=== PATIENT | female | born 1955 | race Caucasian/White ===

== ENCOUNTER 2016-04-08 15:58 | Inpatient (IN) | payer OTHER ==
[~2016-04-08] VITALS: Ht 160 cm; Wt 108.1 kg
[~2016-04-08 15:58] MED LIST: AMBI10TA PO; BENEPOW8 PO; BIOT1SUB SL; CALC600T12 PO; CYMB60CA PO; DICL1GEL TOPICAL; GLUC500C5 PO
[2016-04-12] MEDS ORDERED: ESTR1TAB PO (11:36)
[2016-04-12] MEDS ORDERED: VITA100018 PO (11:36)
[2016-04-12] MEDS ORDERED: HYDR-3516 PO (11:36)
[2016-04-12] MEDS ORDERED: GNP3TAB PO (11:36)
[2016-04-12] MEDS ORDERED: LEVO25TA4 PO (11:36)
[2016-04-12] MEDS ORDERED: STOO100T PO (11:36)
[2016-04-12] MEDS ORDERED: PANT40TA3 PO (11:36)
[2016-04-22] MEDS ORDERED: BUPIVACAINE HCL PF 0.5% 30 ML VIAL NB ONE ×2 (08:39→12:17)
[2016-04-22] MEDS ORDERED: BUPIVACAINE HCL PF 0.25% 30 ML VIAL NB ONE ×2 (08:39→12:17)
[2016-04-22] MEDS ORDERED: PROPOFOL 200 MG/20 ML AMP IV ONE (09:28)
[2016-04-22] MEDS ORDERED: LACTATED RINGER'S 1000 ML INJ 1,000 ML IV ONE (09:29)
[2016-04-22] MEDS ORDERED: NORMOSOL R INJ 1,000 ML IV ONE (09:29)
[2016-04-22] MEDS ORDERED: METOPROLOL TARTRATE 25 MG TAB PO PRN (10:30)
[2016-04-22] MEDS ORDERED: INSULIN HUMAN REGULAR 1,000 UNITS/10 ML VIAL SQ PRN (10:30)
[2016-04-22] MEDS ORDERED: CHLORHEXIDINE GLUCONATE 4% SOLN 120 ML BTL TOP SCH (10:30)
[2016-04-22] MEDS ORDERED: ROPIVACAINE PERI-ARTICULAR INJECTION. PERIART SCH ×5 (10:30)
[2016-04-22] MEDS ORDERED: VANCOMYCIN 1000 MG/NS 250 ML (for <70 kg) IV SCH ×2 (10:30)
[2016-04-22] MEDS ORDERED: SODIUM CHLORID 0.9% 500 ML IV SCH (10:30)
[2016-04-22] MEDS ORDERED: LACTATED RINGER'S 1000 ML IV SCH (10:30)
[2016-04-22] MEDS ORDERED: GENTAMICIN SULFATE 80 MG/2 ML VIAL ONE (10:35)
[2016-04-22] MEDS ORDERED: WARF-21 PO (10:39)
[2016-04-22] MEDS ORDERED: DIAZ5 PO ×2 (10:39)
[2016-04-22 10:48] VITALS: BP 130/78; PULSE 70; RESP 20; TEMP 99; O2SAT 97
[2016-04-22] MEDS ORDERED: FAMOTIDINE 20 MG/2 ML VIAL ONE (11:11)
[2016-04-22] MEDS ORDERED: MIDAZOLAM HCL 5 MG/5 ML VIAL ONE (11:11)
[2016-04-22] MEDS ORDERED: diphenhydrAMINE HCL 50 MG/ML VIAL ONE (11:29)
[2016-04-22] MEDS ORDERED: NEOSTIGMINE 3 MG/3 ML SYR IV ONE (12:00)
[2016-04-22] MEDS ORDERED: DO NOT ADM ANY ANTICOAGULANT DRUGS XX PRN (14:52)
[2016-04-22] MEDS ORDERED: BEDSIDE COMMODE1 MI1 (14:55)
[2016-04-22] MEDS ORDERED: CPMMACHINE (14:55)
[2016-04-22] MEDS ORDERED: WALKER WHEELS/F1 MIS (14:55)
[2016-04-22] MEDS: LACTATED RINGER'S 1000 ML INJ 1,000 ML IV SCH (14:57)
[2016-04-22] MEDS: SODIUM CHLORIDE 0.9% FLUSH 5 ML FLUSH IVF SCH ×2 (15:00→21:32)
[2016-04-22] MEDS ORDERED: ESTRADIOL 1 MG TAB PO PRN (15:00)
[2016-04-22] MEDS ORDERED: ALUMINUM/MAGNESIUM/SIMETH 30 ML CUP PO PRN (15:00)
[2016-04-22] MEDS ORDERED: ZOLPIDEM TARTRATE 10 MG TAB PO PRN (15:00)
[2016-04-22] MEDS ORDERED: MORPHINE SULFATE 8 MG/ML INJ IM PRN (15:00)
[2016-04-22] MEDS ORDERED: ACETAMINOPHEN/HYDROcodone 325 MG/7.5 MG TAB PO PRN ×2 (15:00)
[2016-04-22] MEDS ORDERED: Post-op Orders (for Pharmacy) MISC XX ONE (15:00)
[2016-04-22] MEDS ORDERED: SODIUM CHLORIDE 0.9% FLUSH 5 ML FLUSH IVF PRN (15:00)
[2016-04-22] MEDS ORDERED: *MEPERIDINE 25 MG INJ VIAL PERIprocedural Use ONLY ONE (15:02)
--- NOTE | 2016-04-22 15:03 | HHI.FF ---
Face to Face Verification Diagnosis: (1) Osteoarthritis of right knee Physical Therapy Gait training, Transfer training, bed to chair Knee: Total knee, Protocol: Right Right LE Weight Bearing: WB as tolerated Left LE Weight Bearing: WB as tolerated Nursing RN Days per Week: 3 x Week(s): 2 Nursing: Dressing changes (clean incision with alcohol and apply dry sterile dressing ) Additional Instructions Pt/INR q Tuesday and , call/text results to Molly URENA [phone] Goal INR 1.5-1.8 I have seen patient Virginia Solano on 04/22/16. My clinical findings support the need for the requested home health care services because: Deconditioned w/ increased weakness High risk of falls I certify that my clinical findings support that this patient is homebound because: Post-op weakness Klaus Snyder MD Apr 22, 2016 15:02
--- NOTE | 2016-04-22 15:08 | HHI.PR ---
Immediate Post Op Note Procedure Date: Apr 22, 2016 Pre Op Diagnosis: R Knee OA Post Op Diagnosis: Same Surgeon: Klaus Snyder MD Tankage Grinder(s): Molly Emmanuel PA-C Procedure: R TKR Complications: None Specimen(s) removed: None Estimated blood loss: 50cc Anesthesia: General, Regional Block Drains: Hemovac Patient to: PACU Patient Condition: Good Implant/Devices: SEE IMPLANT LOG (if applicable) Date/Time of Procedure: SEE SURGICAL CARE RECORD Klaus Snyder MD Apr 22, 2016 15:08
[2016-04-22] MEDS ORDERED: MORPHINE SULFATE 4 MG/ML INJ ONE (15:11)
[2016-04-22] MEDS ORDERED: fentaNYL CITRATE 250 MCG/5 ML AMP ONE (15:11)
[2016-04-22] MEDS ORDERED: ACETAMINOPHEN 1000 MG/100 ML VIAL IV ONE (15:14)
[2016-04-22] MEDS ORDERED: *morphine SULFATE 8 MG/ML PERIprocedure ONLY ONE ×2 (15:22→15:41)
--- NOTE | 2016-04-22 15:54 | RADRPT ---
EXAM DATE/TIME: 04/22/2016 15:21 [facility] COMPARISON: No previous studies available for comparison. INDICATIONS : Post op right knee surgery. MEDICAL HISTORY : None. SURGICAL HISTORY : None. ENCOUNTER: Initial ACUITY: 1 day PAIN SCORE: 10/10 LOCATION: Right knee FINDINGS: Views of the right knee demonstrates postsurgical changes following joint replacements. Surgical drai n is noted within the joint space. Prosthetic components are well seated in satisfactory aligned. CONCLUSION: Satisfactory postoperative appearance of the right knee status post replacement. Titus Knowles MD on April 22, 2016 at 15:52 Board Certified Radiologist. This report was verified electronically.
--- NOTE | 2016-04-22 16:24 | PD.CONS ---
HPI Service [facility] Hospitalists Consult Requested By Dr. Klaus Snyder Reason for Consult Medical Management Primary Care Physician Norma De Jesus Jr, MD Diagnoses: History of Present Illness Mrs. Solano is a pleasant 60 y/o WF depression/anxiety, hypothyroidism, GERD, fibromyalgia, osteoarthritis and hx of breast cancer. Pt was admitted to [facility] on 04/22/16 for elective right total knee arthroplasty. [facility] hospitalist team was consulted to help with management of the pts chronic medical issues. She is seen post-operatively in the PACU. Pt complains of pain in the right knee otherwise no specific complaints. Cheek catheter is in place. Vital signs are stable. She reports that he has had issues recently with rectal bleeding related to an anal fissure. Pt has been following with Dr. iNce regarding this. She has been using Anusol. Pt was given a dose of Coumadin which she took for the first time yesterday. She will be on Coumadin for DVT prophylaxis. Her preop labs noted Hgb 13.3 on 04/12/16. Review of Systems Constitutional: DENIES: Fever, Chills Eyes: DENIES: Vision loss Ears, nose, mouth, throat: DENIES: Hearing loss Respiratory: DENIES: Cough, Shortness of breath Cardiovascular: DENIES: Chest pain, Palpitations Gastrointestinal: DENIES: Abdominal pain, Nausea, Vomiting Musculoskeletal: COMPLAINS OF: Joint pain Integumentary: DENIES: Rash Neurologic: DENIES: Headache Psychiatric: DENIES: Confusion Past Family Social History Past Medical History Depression Anxiety GERD Osteoarthritis Anal fissure Chronic pain Fibromyalgia Diverticulosis/Hx of diverticulitis Hypothyroidism Hx of breast cancer s/p radiation Past Surgical History Cataract surgery D&C Hemorrhoidectomy ENEDELIA Laparoscopy Reported Medications -Warfarin 7.5 Mg PO DAILY -Valium 5 Mg PO BID PRN -Vitamin D3 1,000 Units PO DAILY -Melatonin 12 Mg PO HS -Pantoprazole 40 Mg PO DAILY -Estradiol 0.5 Mg PO HS PRN -Stool Softener 100 Mg PO DAILY -Levothyroxine 25 Mcg PO DAILY -Hydrocodone-Acetaminophen 5-325 mg PO Q4H PRN -Voltaren Topical 1% Gel 1 Applic TOPICAL BID -Calcium 1,500 Mg PO BID -Cymbalta DR 80 Mg PO DAILY -Ambien 10 Mg PO HS PRN -Glucosamine 500 Mg PO DAILY -Biotin 5,000 Mcg SL Allergies: Coded Allergies: No Known Allergies (Verified , 03/23/16) Family History Brother with hx of lung cancer Father with hx of CAD and CVA Social History Hx of tobacco use, smoke 1.5ppd x 35years, quit in 2008 Social alcohol use Denies any illicit drug use Physical Exam Vital Signs Vital Signs Date Time Temp Pulse Resp B/P Pulse Ox O2 Delivery O2 Flow Rate FiO2 04/22/16 10:48 99.0 70 20 130/78 97 Physical Exam GENERAL: This is a well-nourished, well-developed patient, in no apparent distress. HEENT: Atraumatic. Normocephalic. No temporal or scalp tenderness. No scleral icterus. Airway patent. NECK: Trachea midline, supple, nontender. CARDIO: Regular. RESP: CTA bilaterally. No wheezes, rales, or rhonchi. ABD: +BS, soft, non-tender, nondistended. EXT: Right knee bandages are c/d/i NEURO: Awake and alert. Motor and sensory grossly within normal limits. Normal speech. Laboratory Laboratory Tests Test 04/22/16 10:40 Blood Type O POSITIVE Antibody Screen NEGATIVE Crossmatch Leukocyte-Reduced Red Blood Cells Blood Bank Comment Assessment and Plan Problem List: (1) Osteoarthritis of right knee Status: Chronic Plan: - Pt s/p right total knee arthroplasty on 04/22/[address] Snyder - Post-op pain control per Ortho - PT - IS - Constipation precautions - DVT prophylaxis with Coumadin (2) Hypothyroidism Status: Chronic Plan: - Cont. home meds (3) Anal fissure Status: Chronic Plan: - Stool softeners - Monitor for bleeding. (4) Depression Status: Chronic Plan: - Cont. home meds (5) Anxiety Status: Chronic Plan: - Cont. home meds (6) Fibromyalgia Status: Chronic Plan: - Cont. home meds (7) GERD (gastroesophageal reflux disease) Status: Chronic Plan: - PPI Assessment and Plan Patient examined. Assessment and plan formulated with Bisi Mueller PA-C. Naz agree with the above. Bisi Mueller Apr 22, 2016 16:24 Dae Bobo MD Apr 22, 2016 19:58
[2016-04-22] MEDS ORDERED: *RESP: ALBUTEROL 2.5 MG/3 ML NEB (PRN) PERIprocedural Use ONLY NEB ONE (17:00)
[2016-04-22 17:21] VITALS: BP 95/52; PULSE 84; RESP 17; TEMP 95.3; O2SAT 96
[2016-04-22 17:59] VITALS: O2SAT 97
[2016-04-22 19:58] VITALS: BP 100/58; PULSE 83; RESP 17; TEMP 97; O2SAT 97
[2016-04-22 21:40] VITALS: BP 84/62; PULSE 85; O2SAT 95
[2016-04-22] MEDS ORDERED: LACTATED RINGER'S 1000 ML INJ 500 ML IV ONE (22:00)
[2016-04-22 23:05] VITALS: BP 99/55
[2016-04-22] MEDS: oxyCODONE/ACETAMINOPHEN 5 MG/325 MG TAB PO PRN (23:09)
[2016-04-23] VITALS (9 sets, daily range): BP systolic 80–129; BP diastolic 49–62; PULSE 75–85; RESP 16–18; TEMP 96.3–98.7; O2SAT 91–98
[2016-04-23] MEDS: LEVOTHYROXINE SODIUM 25 MCG TAB PO SCH (05:02)
[2016-04-23] MEDS: oxyCODONE/ACETAMINOPHEN 5 MG/325 MG TAB PO PRN ×2 (05:03→20:22)
[2016-04-23] MEDS: LACTATED RINGER'S 1000 ML INJ 1,000 ML IV SCH (05:05)
--- NOTE | 2016-04-23 07:18 | PD.ORT.PN ---
Subjective Subjective Remarks POD#1 R TKR C/O post op pain No c/o sob,chest pain Explained to patient operative findings;answered multiple questions Objective Vitals Vital Signs Date Time Temp Pulse Resp B/P Pulse Ox O2 Delivery O2 Flow Rate FiO2 04/23/16 04:00 97.8 75 16 92/53 98 04/23/16 00:04 96.3 85 18 88/62 97 04/22/16 23:05 99/55 04/22/16 21:40 85 84/62 95 04/22/16 19:58 97.0 83 17 100/58 97 04/22/16 17:59 97 Nasal Cannula 2.00 04/22/16 17:21 95.3 84 17 95/52 96 04/22/16 16:45 97.6 82 17 136/78 96 Nasal Cannula 3 04/22/16 16:30 91 15 110/71 95 Nasal Cannula 3 04/22/16 16:00 81 15 118/63 96 Nasal Cannula 3 04/22/16 15:45 78 16 125/70 97 Nasal Cannula 3 04/22/16 15:30 75 16 127/73 97 Nasal Cannula 3 04/22/16 15:15 91 15 125/70 97 Nasal Cannula 3 04/22/16 15:00 82 15 129/80 97 Nasal Cannula 3 04/22/16 14:54 97.6 81 15 147/71 97 Nasal Cannula 3 04/22/16 10:48 99.0 70 20 130/78 97 I/O 04/22/16 04/22/16 04/22/16 04/23/16 04/23/16 04/23/16 07:00 15:00 23:00 07:00 15:00 23:00 Intake Total 1400 ml 655 ml 480 ml Output Total 200 ml 415 ml 700 ml Balance 1200 ml 240 ml -220 ml Intake Oral 480 ml 480 ml IV Total 175 ml Other 1400 ml Output Urine Total 150 ml 300 ml 700 ml Drainage Total 115 ml Estimated Blood Loss 50 ml # Voids 1 # Bowel Movements 0 0 Imaging Last 24 hours Impressions Knee X-Ray 04/22/16 1457 Signed Impressions: Service Date/Time: April 15:21 - CONCLUSION: Satisfactory postoperative appearance of the right knee status post replacement. Titus Knowles MD Objective Remarks N/V intact Neg leidy's,no calf tenderness Drain pulled last night by patient;change dressings today Assessment & Plan Assessment and Plan Ortho stable PT/Rehab Coumadin,TEDS for dvt prophylaxsis D/C home tomorrow;[facility] nursing,pt Klaus Snyder MD Apr 23, 2016 07:18
[2016-04-23] MEDS: SODIUM CHLORIDE 0.9% FLUSH 5 ML FLUSH IVF SCH ×2 (08:31→20:25)
[2016-04-23] MEDS: DOCUSATE SODIUM 100 MG CAP PO SCH (08:31)
[2016-04-23] MEDS: PANTOPRAZOLE SOD 40 MG DELAYED RELEASE TAB PO SCH (08:31)
[2016-04-23] MEDS: DULoxetine HCl DR 20 MG CAP PO SCH (08:31)
[2016-04-23] MEDS ORDERED: SODIUM CHLOR 0.9% 1000 ML INJ 1,000 ML IV ONE (09:00)
[2016-04-23] MEDS ORDERED: ACETAMINOPHEN 1000 MG/100 ML VIAL IV ONE (09:00)
[2016-04-23 10:09] LABS: REVIEW FLAG FINAL
[2016-04-23 10:19] LABS: PROTHROMBIN TIME - PATIENT 11.3 SEC (9.8-11.6)
[2016-04-23 10:34] LABS: BICARBONATE 30.1 MEQ/L (21.0-32.0); POTASSIUM 3.5 MEQ/L (3.5-5.1)
--- NOTE | 2016-04-23 10:56 | HHI.PR ---
Subjective Remarks bp lower overnight. no sleep. c/o pain behind right knee Objective Vitals heent neg heart reg lung cta abd s/nt ext right knee/leg swollen Vital Signs Date Time Temp Pulse Resp B/P Pulse Ox O2 Delivery O2 Flow Rate FiO2 04/23/16 08:40 91 21 04/23/16 08:14 86/54 88/50 04/23/16 07:56 97.9 84 18 80/49 92 04/23/16 04:00 97.8 75 16 92/53 98 04/23/16 00:04 96.3 85 18 88/62 97 04/22/16 23:05 99/55 04/22/16 21:40 85 84/62 95 04/22/16 19:58 97.0 83 17 100/58 97 04/22/16 17:59 97 Nasal Cannula 2.00 04/22/16 17:21 95.3 84 17 95/52 96 04/22/16 16:45 97.6 82 17 136/78 96 Nasal Cannula 3 04/22/16 16:30 91 15 110/71 95 Nasal Cannula 3 04/22/16 16:00 81 15 118/63 96 Nasal Cannula 3 04/22/16 15:45 78 16 125/70 97 Nasal Cannula 3 04/22/16 15:30 75 16 127/73 97 Nasal Cannula 3 04/22/16 15:15 91 15 125/70 97 Nasal Cannula 3 04/22/16 15:00 82 15 129/80 97 Nasal Cannula 3 04/22/16 14:54 97.6 81 15 147/71 97 Nasal Cannula 3 04/22/16 04/22/16 04/23/16 15:00 23:00 07:00 Intake Total 1400 ml 655 ml 1461 ml Output Total 200 ml 415 ml 700 ml Balance 1200 ml 240 ml 761 ml Intake Oral 480 ml 480 ml IV Total 175 ml 981 ml Other 1400 ml Output Urine Total 150 ml 300 ml 700 ml Drainage Total 115 ml Estimated Blood Loss 50 ml # Voids 1 # Bowel Movements 0 0 Result Diagram: 04/23/1692904/23/16929 A/P Problem List: (1) Osteoarthritis of right knee Status: Chronic Plan: - Pt s/p right total knee arthroplasty on 04/22/[address] Snyder - Post-op pain control per Ortho - PT - IS - Constipation precautions - DVT prophylaxis with Coumadin - bp running low. caution with pain meds. ivf started. - doppler of leg ordered by ortho. (2) Hypothyroidism Status: Chronic Plan: - Cont. home meds (3) Anal fissure Status: Chronic Plan: - Stool softeners - Monitor for bleeding. (4) Depression Status: Chronic Plan: - Cont. home meds (5) Anxiety Status: Chronic Plan: - Cont. home meds (6) Fibromyalgia Status: Chronic Plan: - Cont. home meds (7) GERD (gastroesophageal reflux disease) Status: Chronic Plan: - PPI Dae Bobo MD Apr 23, 2016 10:56
--- NOTE | 2016-04-23 11:35 | RADRPT ---
EXAM DATE/TIME: 04/23/2016 10:59 [facility] COMPARISON: No previous studies available for comparison. INDICATIONS : Right leg pain. MEDICAL HISTORY : Gastroesophageal reflux disease. Thyroid disease. Migriane. Breast cancer. Arthritis. Fibromyalg ia. Hypothyroidism. SURGICAL HISTORY : Hysterectomy. Right knee replacement 04/22/16. Cataract removal. Deviated septum repair. Left breast lumpectomy. Rectal surgery. Jaw surgery. ENCOUNTER: Initial ACUITY: 1 day PAIN SCORE: 5/10 LOCATION: Right leg. TECHNIQUE: Venous ultrasound of the leg was performed from the inguinal ligament to the proximal calf. Real-anne e, color Doppler and spectral tracing, compression and augmentation techniques were used. FINDINGS: There is normal compressibility of the deep venous system from the inguinal region to the proximal ca lf. No echogenic clot is seen in the lumen of the common femoral, femoral, popliteal, and posterior tibial veins. There is a normal response of the venous system to proximal and distal augmentation an d respiration. CONCLUSION: No DVT of the right lower extremity. Emmett Goldstein MD on April 23, 2016 at 11:34 Board Certified Radiologist. This report was verified electronically.
[2016-04-23] MEDS ORDERED: WARFARIN SOD 5 MG TAB PO SCH (14:00)
[2016-04-23] MEDS: ACETAMINOPHEN 1000 MG/100 ML VIAL IV SCH ×2 (14:10→20:00)
[2016-04-23] MEDS ORDERED: WARFARIN SOD 7.5 MG TAB PO ONE (16:00)
[2016-04-24 00:30] VITALS: BP 113/52; PULSE 83; RESP 18; TEMP 98.9; O2SAT 95
[2016-04-24] MEDS: oxyCODONE/ACETAMINOPHEN 5 MG/325 MG TAB PO PRN ×4 (02:04→19:45)
[2016-04-24] MEDS: LEVOTHYROXINE SODIUM 25 MCG TAB PO SCH (04:19)
[2016-04-24 04:20] VITALS: BP 116/70; PULSE 100; RESP 19; TEMP 98.3; O2SAT 93
[2016-04-24 05:44] LABS: INTERNATIONAL NORMALIZED RATIO 1.1 RATIO; PROTHROMBIN TIME - PATIENT 12.7 SEC (9.8-11.6)
--- NOTE | 2016-04-24 07:45 | PD.ORT.PN ---
Subjective Subjective Remarks Moderate r knee pain and aching. No new radiating leg pain. No CP or SOB. Difficulty ambulating still. Likely d/c to snf. Objective Vitals Vital Signs Date Time Temp Pulse Resp B/P Pulse Ox O2 Delivery O2 Flow Rate FiO2 04/24/16 04:20 98.3 100 19 116/70 93 04/24/16 03:04 18 04/24/16 00:30 98.9 83 18 113/52 95 04/23/16 20:45 98.7 76 18 129/59 96 04/23/16 18:34 96 21 04/23/16 16:00 97.6 78 18 94/52 96 04/23/16 12:00 98.0 77 18 95/56 95 04/23/16 08:40 91 21 04/23/16 08:14 86/54 88/50 04/23/16 07:56 97.9 84 18 80/49 92 I/O 04/23/16 04/23/16 04/23/16 04/24/16 04/24/16 04/24/16 07:00 15:00 23:00 07:00 15:00 23:00 Intake Total 1461 ml 960 ml 480 ml 480 ml Output Total 700 ml 2000 ml 300 ml Balance 761 ml -1040 ml 180 ml 480 ml Intake Oral 480 ml 960 ml 480 ml 480 ml IV Total 981 ml Output Urine Total 700 ml 2000 ml 300 ml # Voids 4 # Bowel Movements 0 0 0 0 Result Diagram: 04/23/16 0930 04/23/16 0930 Other Results Laboratory Tests Test 04/23/16 04/24/16 09:30 05:10 Prothrombin Time 11.3 SEC 12.7 SEC (9.8-11.6) (9.8-11.6) Prothromb Time International 1.0 RATIO 1.1 RATIO Ratio Imaging Last 24 hours Impressions Knee X-Ray 04/22/16 6447 Signed Impressions: Service Date/Time: April 15:21 - CONCLUSION: Satisfactory postoperative appearance of the right knee status post replacement. Titus Knowles MD Objective Remarks Sitting up in bed Anxious VSS RLE Dressing c/d/i, no new drainage, mild swelling calf supple, neg homans +motor at, +sens, +nvi Pt seen and evaluated by Dr. Becky Sepulveda Assessment & Plan Ortho Post Op Day #: 2 Problem List: Assessment and Plan pod#2 s/p R TKA Ortho stable PO pain meds as needed PT - WBAT RLE. CPM. Walker as needed. Dressing changes as instructed. Coumadin sliding scale. 7.5mg today as INR 1.1. Will d/c her with 5mg daily thereafter. INR qmon/thurs to Molly. D/C planning, SNF this afternoon. Kalpana Merritt Apr 24, 2016 07:45
[2016-04-24] MEDS: ONDANSETRON HCL 4 MG/2 ML VIAL IVP PRN ×2 (07:46→14:32)
[2016-04-24] MEDS: DULoxetine HCl DR 20 MG CAP PO SCH (07:46)
[2016-04-24] MEDS: DOCUSATE SODIUM 100 MG CAP PO SCH (07:47)
[2016-04-24] MEDS: PANTOPRAZOLE SOD 40 MG DELAYED RELEASE TAB PO SCH (07:47)
[2016-04-24] MEDS: SODIUM CHLORIDE 0.9% FLUSH 5 ML FLUSH IVF SCH ×2 (07:47→19:44)
[2016-04-24 08:00] VITALS: BP 113/69; PULSE 87; RESP 19; TEMP 98.2; O2SAT 97
[2016-04-24] MEDS ORDERED: BISACODYL 10 MG SUPP RECTAL PRN (08:30)
[2016-04-24] MEDS ORDERED: WARFARIN SOD 7.5 MG TAB PO ONE (09:00)
[2016-04-24] MEDS: MAGNESIUM HYDROXIDE SUSP 30 ML CUP PO SCH ×2 (09:41→19:44)
[2016-04-24 12:00] VITALS: BP 109/58; PULSE 93; RESP 18; TEMP 98.7; O2SAT 93
[2016-04-24] MEDS ORDERED: AMBI10TA PO (12:03)
[2016-04-24] MEDS ORDERED: DIAZ5 PO (12:03)
[2016-04-24] MEDS ORDERED: LACTULOSE SYRUP 20 GM/30 ML CUP PO ONE ×2 (12:15→16:00)
[2016-04-24 16:00] VITALS: BP 102/60; PULSE 86; RESP 18; TEMP 97.5; O2SAT 93
[2016-04-24] MEDS: DIAZEPAM 5 MG TAB PO PRN (16:33)
[2016-04-24 19:29] VITALS: BP 115/56; PULSE 90; RESP 16; TEMP 98.6; O2SAT 95
[2016-04-25] VITALS: BP 100/65; PULSE 86; RESP 16; TEMP 98.7; O2SAT 95
[2016-04-25] MEDS: LEVOTHYROXINE SODIUM 25 MCG TAB PO SCH (04:54)
[2016-04-25] MEDS: oxyCODONE/ACETAMINOPHEN 5 MG/325 MG TAB PO PRN ×2 (06:32→13:55)
[2016-04-25 07:23] LABS: INTERNATIONAL NORMALIZED RATIO 1.6 RATIO; PROTHROMBIN TIME - PATIENT 17.5 SEC (9.8-11.6)
[2016-04-25] MEDS: PANTOPRAZOLE SOD 40 MG DELAYED RELEASE TAB PO SCH (07:59)
[2016-04-25] MEDS: DOCUSATE SODIUM 100 MG CAP PO SCH (07:59)
[2016-04-25] MEDS: DULoxetine HCl DR 20 MG CAP PO SCH (07:59)
[2016-04-25 08:00] VITALS: BP 101/56; PULSE 97; RESP 18; TEMP 98.8; O2SAT 92
[2016-04-25] MEDS: MAGNESIUM HYDROXIDE SUSP 30 ML CUP PO SCH (08:01)
[2016-04-25] MEDS: SODIUM CHLORIDE 0.9% FLUSH 5 ML FLUSH IVF SCH (08:01)
--- NOTE | 2016-04-25 09:09 | PD.ORT.PN ---
Subjective Subjective Remarks Continues to have moderate right knee pain and aching. PO meds help. No new radiating leg pain or complaints from last night. No CP or SOB. Likely d/c to snf today. Discussed d/c yesterday but apparently there were placement issues in getting a bed at the facility desired. Objective Vitals Vital Signs Date Time Temp Pulse Resp B/P Pulse Ox O2 Delivery O2 Flow Rate FiO2 04/25/16 06:39 Room Air 04/25/16 00:00 98.7 86 16 100/65 95 04/24/16 19:29 98.6 90 16 115/56 95 04/24/16 19:02 Room Air 04/24/16 16:00 97.5 86 18 102/60 93 04/24/16 15:29 18 04/24/16 12:00 98.7 93 18 109/58 93 I/O 04/24/16 04/24/16 04/24/16 04/25/16 04/25/16 04/25/16 07:00 15:00 23:00 07:00 15:00 23:00 Intake Total 480 ml 960 ml 720 ml 240 ml Balance 480 ml 960 ml 720 ml 240 ml Intake Oral 480 ml 960 ml 720 ml 240 ml # Voids 4 3 3 2 # Bowel Movements 0 0 2 1 Result Diagram: 04/23/16 0930 04/23/16 0930 Other Results Laboratory Tests Test 04/25/16 06:44 Prothrombin Time 17.5 SEC (9.8-11.6) Prothromb Time International 1.6 RATIO Ratio Imaging Last 24 hours Impressions Knee X-Ray 04/22/16 3347 Signed Impressions: Service Date/Time: April 15:21 - CONCLUSION: Satisfactory postoperative appearance of the right knee status post replacement. Titus Knowles MD Objective Remarks Ambulating to restroom, Anxious VSS RLE Dressing c/d/i, no new drainage, mild swelling calf supple, neg homans +motor at, +sens, +nvi Pt seen and evaluated by Dr. Becky Sepulveda Assessment & Plan Ortho Post Op Day #: 3 Problem List: Assessment and Plan pod#3 s/p R TKA Ortho stable. Was looking at d/c yesterday but apparently CM could not get bed at preferred SNF location and new location was not suggested. Ok to d/c today. PT now going home w [facility]. F2F written/signed. PO pain meds as needed PT - WBAT RLE. CPM. Walker as needed. Dressing changes as instructed. Coumadin sliding scale. INR 1.6. Will d/c her with 5mg daily thereafter. INR qmon/thurs to Molly. F/U w Dr. JESSICA outpatient. Kalpana Merritt Apr 25, 2016 09:09
[2016-04-25] MEDS: DIAZEPAM 5 MG TAB PO PRN (10:08)
[2016-04-25 12:00] VITALS: BP 128/67; PULSE 91; RESP 18; TEMP 96.8; O2SAT 94
--- NOTE | 2016-04-26 08:02 | MP ---
cc: DARÍO CARVALHO M.D., ALFONZA MD DATE OF SURGERY: 04/22/2016 PREOPERATIVE DIAGNOSIS 1. Right knee osteoarthritis. 2. Morbid obesity. POSTOPERATIVE DIAGNOSIS 1. Right knee osteoarthritis. 2. Morbid obesity. PROCEDURE Right total knee arthroplasty - cemented [employer] V[employer]. SURGEON Jane Carvalho MD GLASSIE Molly Emmanuel PA-C SPECIMEN None. ESTIMATED BLOOD LOSS 50 cc. COMPLICATIONS None. ANESTHESIA General, adductor canal block. DRAINS Two. TOURNIQUET TIME 53 minutes at 250 mmHg. CONDITION Stable. PLAN OF ACTIVITY Per orders. DETAILS OF PROCEDURE My volunteer assistant, Molly Emmanuel PA-C, was present for the entire surgical case. She was medically necessary for the entire case because of the complexity of the case and to facilitate the performance of the procedure. The TERRAZZO MECHANIC HELPER at the back table did not have the skill set for this case to manipulate the instruments, e.g., the multiple different types of soft tissue retractors, trial implants and permanent implants including bone cement. The patient was brought into the operating room, had satisfactory anesthesia by the Department of Anesthesia. The right lower extremity was prepped and draped in the usual sterile manner. The extremity was exsanguinated by Eric wrap, the tourniquet inflated to 250 mmHg. An anterior exposure to the knee was made. A paramedian capsulotomy was performed. The patient was found to have tricompartmental osteoarthritis involving all three compartments of the knee. The remaining portion of the medial and lateral meniscus were removed. The anterior cruciate ligament was removed. The posterior cruciate ligament was preserved. Using the Biomet Vanguard total knee arthroplasty system an IM guide was used for the distal femur with a 5 degree valgus cut to accept a 65 mm femoral component. An extramedullary guide was used on the tibia to accept a 71 mm tibial component. A 12 mm insert was used. The patient had appropriate balancing in both flexion and extension. The undersurface of the patella was removed to accept a 31 mm three-pronged patellar prosthesis. All trial components were was removed. Preparation for cementing was made. Two packages of high viscosity bone cement was used. First the tibial component was cemented which was a 71 mm tibial component. Then the femoral component was cemented which was a right femur 65 mm femoral component. The undersurface of the patella was resurfaced with a 31 mm three-pronged patella prosthesis. The bone cement was allowed to harden for 12 and 1/2 minutes. All excess bone cement was removed and the 12 x 71 polyethylene plastic was assembled onto the tibial tray with the appropriate locking mechanism. The knee was injected with local anesthesia provided by the pharmacy department. The knee was irrigated with 4000 cc of sterile saline antibiotic solution. The wound itself was dry. The tourniquet was deflated. The wound was closed over two Hemovac drains hooked up to an Autovac-type system. The capsule and extensor mechanism were repaired using multiple interrupted #2 Tycron sutures. The subcutaneous layer was closed with 0 Vicryl and 2-0 Vicryl. The skin was approximated with skin gill. Sterile dressings were applied. The patient tolerated the procedure well and arrived in the recovery room in stable and satisfactory condition. MD ARACELY Rahman/CJ /2:55 PM /6:43 AM
== END 2016-04-25 14:31 | disposition home or self-care (01) | DRG 470 ==
LOC: HSDI 04-22 10:02 → N06B 04-22 17:13 → N06A 04-23 18:56
PROVIDERS: ADMIT Orthopaedic Surgery Orthopaedic Surgery of the Spine; ATTEND Orthopaedic Surgery Orthopaedic Surgery of the Spine
PROC: 0SRC0J9 Replacement of Right Knee Joint with Synthetic Substitute, Cemented, Open Approach (ICD-10-PCS; principal; 2016-04-22 12:49)
DX: M17.11 Unilateral primary osteoarthritis, right knee (principal); Z68.41 Body mass index [BMI] 40.0-44.9, adult; G89.18 Other acute postprocedural pain; E66.01 Morbid (severe) obesity due to excess calories; F41.9 Anxiety disorder, unspecified; F32.9 Major depressive disorder, single episode, unspecified; E03.9 Hypothyroidism, unspecified; M79.7 Fibromyalgia; K21.9 Gastro-esophageal reflux disease without esophagitis; K60.2 Anal fissure, unspecified; Z85.3 Personal history of malignant neoplasm of breast; Z87.891 Personal history of nicotine dependence
CPT/HCPCS: 73560; 80048; 85014; 85018; 85610; 86850; 86900; 86901; 86920; 93971; 94150; C1776; J0131; J0171; J0690; J0735; J1200; J1580; J1885; J2175; J2250; J2270; J2405; J2710; J2795; J3010; J3370; J7030; J7050; J7120; J7613; L1830

== ENCOUNTER → 2016-04-12 | Outpatient (CLI) | payer OTHER ==
[~2016-04-12] MED LIST changes: +ALIG4CAP PO; +BEDSIDE COMMODE1 MI1; +CPMMACHINE; +DIAZ5 PO; +DULO20 PO; +ESTR1TAB PO; +ESTR42.5V VAGINAL; +GNP3TAB PO; +HYDR-3516 PO; +LEVO25TA4 PO; +OMEP40CA2 PO; +PANT40TA3 PO; +PERC10TA27 PO; +STOO100T PO; +VITA100018 PO; +WALKER WHEELS/F1 MIS; +WARF-21 PO
[2016-04-12 09:05] LABS: BACTERIA, URINE RARE /hpf; BLOOD, URINE NEG (NEG); COMMENT (UR) CULT NOT INDICATED; CULTURE IF INDICATED CULT NOT INDICATED; GLUCOSE,URINE NEG (NEG); GRANULAR CAST, URINE 2 /lpf; HYALINE CAST, URINE 1 /lpf (RARE); KETONE, URINE NEG (NEG); MUCUS URINE FEW /lpf (OCC); NITRITE,URINE NEG (NEG); SQUAMOUS EPITHELIAL CELL URINE 1 /hpf (0-5); URINE COLOR YELLOW (YELLW/STRAW)
[2016-04-12 09:08] LABS: AUTOMATED NEUTROPHIL # 5.3 TH/MM3 (1.8-7.7); BASOPHIL # 0.1 TH/MM3 (0-0.2); BASOPHIL % 0.7 % (0.0-2.0); EOSINOPHIL # 0.2 TH/MM3 (0-0.4); EOSINOPHIL % 2.9 % (0.0-4.0); HEMATOCRIT 39.8 % (35.0-46.0); HEMO FLAGS DIFF FINAL; LYMPH % 25.5 % (9.0-44.0); LYMPHOCYTE # 2.1 TH/MM3 (1.0-4.8); MEAN CELL VOLUME 88.7 FL (80.0-100.0); MEAN CORPUSCULAR HEMOGLOBIN 29.7 PG (27.0-34.0); MEAN CORPUSCULAR HGB CONC 33.5 % (32.0-36.0); MONO % 6.7 % (0.0-8.0); NEUT % 64.2 % (16.0-70.0); PLATELET COUNT 325 TH/MM3 (150-450); RED BLOOD COUNT 4.48 MIL/MM3 (4.00-5.30); RED CELL DISTRIBUTION WIDTH 13.6 % (11.6-17.2); WHITE BLOOD COUNT 8.2 TH/MM3 (4.0-11.0)
[2016-04-12 09:13] LABS: BICARBONATE 29.2 MEQ/L (21.0-32.0); POTASSIUM 3.7 MEQ/L (3.5-5.1)
--- NOTE | 2016-04-12 12:06 | EKG ---
Date Performed: 04/12/2016 Time Performed: 08:39:06 PTAGE: 60 years EKG: Sinus rhythm POSSIBLE LEFT ATRIAL ENLARGEMENT LOW QRS VOLTAGE IN PRECORDIAL LEADS POSSIBLE ANTERIOR MYOCARDIAL IN FARCTION, OF INDETERMINATE AGE Compared to the previous tracing, poor R wave progression is now prese nt across the anterior precordium. This may reflect lead placement change Clinical correlation is rec ommended ABNORMAL ECG PREVIOUS TRACING : 01/18/12 DOCTOR: Isidoro Sen Interpretating Date/Time 04/12/2016 12:04:55
== END ==
LOC: CPRE 08:07
PROVIDERS: ATTEND Orthopaedic Surgery Orthopaedic Surgery of the Spine
DX: Z01.810 Encounter for preprocedural cardiovascular examination (principal); Z01.812 Encounter for preprocedural laboratory examination; Z01.818 Encounter for other preprocedural examination; M17.11 Unilateral primary osteoarthritis, right knee
CPT/HCPCS: 36415; 80048; 81001; 85025; 93005

== ENCOUNTER 2017-11-21 12:06 | Inpatient (IN) ==
[2017-11-21] MEDS ORDERED: Metoprolol Tartrate 25 MG Tablet PO ONE (12:42)
[2017-11-21] MEDS ORDERED: Chlorhexidine Gluconate 2% 1 Pack (2 Cloths) TOPICAL ONE (12:42)
[2017-11-21] MEDS ORDERED: Chlorhexidine 4% Topical 120 APPLIC/120 ML Bottle TOPICAL SCH (12:45)
[2017-11-21] MEDS ORDERED: Sodium Chlor 0.9% Inj 73.07 ML, Ropivacaine 0.5% PF Inj 24.63 ML, Ketorolac Inj 30 MG, ... P-ARTICULR SCH ×5 (12:45)
[2017-11-21] MEDS ORDERED: Sodium Chlor 0.9% Inj 500 ML IV.SIG SCH (13:00)
[2017-11-21] MEDS ORDERED: Vancomycin Inj 1,000 MG in Sodium Chlor 0.9% Inj 250 ML IV.SIG SCH (13:00)
[2017-11-21] MEDS ORDERED: ceFAZolin 2 GM Premix Inj 2 GM/50 ML PIGGYBACK IV.SIG ONE (13:36)
[2017-11-21] MEDS ORDERED: Lidocaine PF 1% Inj 5 ML Syringe OTHER ONE (15:06)
[2017-11-21] MEDS ORDERED: Morphine Inj 4 MG/ML Vial IV.PUSH PRN (17:32)
[2017-11-21] MEDS ORDERED: Bisacodyl 10 MG Supp RECTAL PRN (17:32)
[2017-11-21] MEDS ORDERED: Post-op Orders (for Pharmacy) OTHER STA (17:32)
[2017-11-21] MEDS ORDERED: *Meperidine Inj 25 MG/ML Vial PERIprocedural Use ONLY ONE (17:33)
[2017-11-21] MEDS ORDERED: fentaNYL Citrate Inj 100 MCG/2 ML Ampul ONE (17:36)
--- NOTE | 2017-11-21 17:37 | P.DCO ---
- Physical Therapy Physical Therapy: Gait training, Safety evaluation Knee: Total knee, Protocol: Left, Full weight bearing Canvas Knee Splint: When in bed with 2 pillows between thighs Right Lower Extremity Weight Bearing: Weight bearing as tolerated Left Lower Extremity Weight Bearing: Weight bearing as tolerated - Nursing RN: 3 days/week x 2 weeks Nursing: Dressing changes (clean incision with alcohol and apply dry sterile dressing daily ) Additional instructions: aspirin 81 mg bid x 4 weeks dvt prop knee high teds bilateral legs during day time - Certification Need for Home Health services: I have seen patient Virginia Solano on 11/21/17. My clinical findings support the need for the requested home health care services because: Need for Home Health Services: Deconditioned with increased weakness Homebound Certification: I certify that my clinical findings support that this patient is homebound because: Homebound Certification: Post-op weakness
[2017-11-21] MEDS ORDERED: *morphine SULFATE 10 MG/ML PERIprocedure ONLY ONE ×2 (17:38→17:46)
[2017-11-21] MEDS ORDERED: *Ondansetron Inj 4 MG/2 ML Vial PERIprocedural Use ONLY ONE (17:42)
[2017-11-21] MEDS ORDERED: HYDROmorphone PF Inj 2 MG/ML Vial ONE ×2 (17:51→18:05)
--- NOTE | 2017-11-21 18:09 | XR ---
EXAM DATE: 11/21/2017 5:31 PM EDT AGE/SEX: 62 years / Female INDICATIONS: Post left knee surgery. CLINICAL DATA: This is the patient's initial encounter. Patient reports that signs and symptoms have been present for 1 day and indicates a pain score of 7/10. MEDICAL/SURGICAL HISTORY: None. None. COMPARISON: No prior exams available for comparison. FINDINGS: Postoperative total knee arthroplasty with surgical drains in the suprapatellar region, multiple skin gill, and near anatomic alignment of the osseous structures. The prosthesis hardware is intact. S ubcutaneous gas in the soft tissues about the knee. There are 3 ossific densities projected lateral t o the joint space on the frontal view measuring 5 mm or less. CONCLUSION: Expected postsurgical findings status post total knee arthroplasty. Electronically signed by: Javid Galvan MD 11/21/2017 6:07 PM EDT
[2017-11-21] MEDS ORDERED: Ketorolac Inj 30 MG/ML (IVP) Vial ONE (18:19)
[2017-11-21] MEDS ORDERED: Ketorolac Inj 30 MG/ML (IVP) Vial IV.PUSH ONE (19:00)
--- NOTE | 2017-11-21 19:29 | MP ---
cc: Klaus Snyder MD, Alfonza MD DATE OF OPERATION: 11/21/2017 PREOPERATIVE DIAGNOSIS: Left knee osteoarthritis. POSTOPERATIVE DIAGNOSIS: Left knee osteoarthritis. PROCEDURE PERFORMED: Left total knee arthroplasty-cemented Biomet Vanguard. SURGEON: Klaus Snyder MD ANESTHESIA: Molly Emmanuel PA-C TOURNIQUET TIME: 65 minutes at 250 mmHg. DRAINS: Two. SPECIMENS: None. COMPLICATIONS: None. ANESTHESIA: General, adductor canal block, intraarticular block. PROCEDURE: My case management assistant, Molly Emmanuel PA-C, was present for the entire surgical case. She was medically necessary for the entire case because of the complexity of the case and to facilitate the performance of the procedure. The V[employer]IN[employer] ANIMAL at the back table was not of the skill set for this case to manipulate the instruments, e.g. multiple different types of soft tissue retractors, trial implants and permanent implants. The patient was brought in the operating room and had satisfactory anesthesia by the Department of Anesthesia. The left lower extremity was prepped and draped in the usual sterile manner. The extremity was exsanguinated by elevation and tourniquet inflated to 250 mmHg. Small anterior exposure and paramedian capsulotomy was performed. Patella dislocated laterally. The patient was found to have moderately severe tricompartmental osteoarthritis. The patient also was found to have moderate degree of synovitis with no abnormal-looking fluids. Remainder portion of medial and lateral meniscus removed. Prepatellar fat pad was excised. The anterior cruciate ligament was removed. Posterior cruciate ligament was preserved. Mid portion of the medial and lateral meniscus removed. Using the Biomet-Vanguard total knee arthroplasty system, IM guide was used for distal femur to accept a 62.5 mm femoral component. Extramedullary guide was used for the tibia to accept a 71 mm tibial component. Trial reduction made with 12 mm insert. The patient was found to have satisfactory balancing in both flexion and extension. The undersurface of the patella was removed to accept a 31.5 mm patellar prosthesis. All trial components were removed and preparation for cementing was made. Two packages of methyl methacrylate were used. First, the tibial component was cemented, which was a 71 mm tibial component, then the femoral component was cemented, which was a 62.5 mm left femoral component and then undersurface of the patella was cemented to the 3-prong patellar prosthesis, 31 mm was cemented. All excess bone cement was removed. The bone cement was allowed to harden for 12 minutes. The wound was irrigated with 4000 mL of sterile saline antibiotic solution. Tourniquet was deflated. All bleeders were coagulated. The wound itself was dry. The knee was injected with 100 mL of local anesthesia provided by Department of Pharmacy. The wound was closed over two 8th-inch Hemovac drains. The capsule and extensor mechanism was closed with multiple interrupted #2 Ti-Cron suture, the subcutaneous layer with 0 Vicryl, 2-0 Vicryl, skin approximated with skin gill. Sterile dressings were applied. The patient tolerated the procedure well, went to recovery in stable and satisfactory condition. Klaus Snyder MD AWG/sv , 05:27 PM , 05:36 PM
[2017-11-21] MEDS: Senna/Docusate Sodium 8.6/50 MG Tablet PO SCH (21:42)
[2017-11-22 05:19] LABS: Hematocrit 32.4 % (35.0-46.0); Hemoglobin 10.6 gm/dL (11.6-15.3)
--- NOTE | 2017-11-22 06:51 | P.PNOP ---
Subjective Interval history: POD#1 L TKR No SOB;no chest pain Patient wants to go home today Physical Exam Vital signs: Vital Signs 11/21/17 12:45 11/21/17 12:52 11/21/17 17:30 Temperature 98.8 F 97.4 F L Pulse Rate 79 88 84 Respiratory Rate 16 12 Blood Pressure 124/75 148/70 H Pulse Oximetry 98 96 95 11/21/17 17:45 11/21/17 18:00 11/21/17 18:15 Temperature Pulse Rate 89 93 H 96 H Respiratory Rate 20 24 28 H Blood Pressure 115/57 L 112/56 L 101/52 L Pulse Oximetry 97 98 97 11/21/17 18:30 11/21/17 18:49 11/21/17 20:00 Temperature 98.0 F 98.2 F Pulse Rate 96 H 102 H Respiratory Rate 24 16 Blood Pressure 116/53 L 107/58 L Pulse Oximetry 96 96 96 11/21/17 22:01 11/22/17 00:00 11/22/17 02:54 Temperature 97.6 F Pulse Rate 105 H Respiratory Rate 18 16 18 Blood Pressure 106/66 Pulse Oximetry 96 11/22/17 04:00 Temperature 97.6 F Pulse Rate 91 H Respiratory Rate 16 Blood Pressure 114/55 L Pulse Oximetry 97 Intake & Output 11/21/17 11/21/17 11/22/17 06:59 18:59 06:59 Intake Total 1600 / 1600 1780 / 1780 Output Total 150 / 150 470 / 470 Balance 1450 / 1450 1310 / 1310 Weight 102.8 kg 107.1 kg Intake: IV 400 / 400 1300 / 1300 Ofirmev Inj 1,000 mg In 100 ml 100 / 100 @ 400 mls/hr IV.SIG ONCE ONE Rx #:[id number] LR 1000 mL Inj 1,000 ML @ 30 1000 / 1000 mls/hr IV.SIG .Q24H [facility] Rx#: [id number] Vancomycin Inj 1,000 MG In NS 250 / 250 Inj 250 ML @ 250 mls/hr IV.SIG CATHOLIC PRIEST [facility] Rx#:[id number] Ancef 2 GM Premix Inj 2 gm In 50 / 50 50 ml @ 0 mls/hr IV.SIG .STK- MED ONE Rx#:[id number] Ancef Inj 1,000 MG In NS Inj 300 / 300 100 ML @ 200 mls/hr IV.SIG Q6H [facility] Rx#:[id number] Oral 480 / 480 Anesthesia Amount 1200 / 1200 Output: Urine 300 / 300 Estimated Blood Loss 50 / 50 Wound Drainage 100 / 100 170 / 170 # 1 Left Lateral Knee Hemovac 100 / 100 170 / 170 Other: # Voids 1 Date of Last Bowel Movement 11/20/17 Weight On Admission 102.8 kg Narrative: N/V intact No calf tenderness;neg leidy's Results - Labs CBC & Chem 7: 11/22/17 04:21 Laboratory Results - last 24 hr 11/21/17 11/22/17 12:40 04:21 Hgb 10.6 L Hct 32.4 L Blood Type O Positive Blood Type Recheck Not needed Antibody Screen Negative MTS Gel Crossmatch See Detail - Imaging Impressions Knee X-Ray 11/21/17 17:31 CONCLUSION: Expected postsurgical findings status post total knee arthroplasty. Assessment and Plan - Assessment and Plan Ortho stable Discharge home today [facility] RN/PT TEDS,Aspirin 81mg BID x 4 weeks for DVT/PE prophylaxsis
[2017-11-22] MEDS: Senna/Docusate Sodium 8.6/50 MG Tablet PO SCH ×2 (08:32→20:29)
[2017-11-22] MEDS ORDERED: Morphine Sulfate Inj 2 MG/ML Vial IV.PUSH SCH (20:00)
[2017-11-22] MEDS: Morphine Sulfate Inj 2 MG/ML Vial IV.PUSH PRN (20:26)
[2017-11-22] MEDS ORDERED: Morphine Sulfate Inj 2 MG/ML Vial IV.PUSH ONE (22:00)
[2017-11-23] MEDS: Morphine Sulfate Inj 2 MG/ML Vial IV.PUSH PRN ×2 (00:12→03:51)
[2017-11-23 06:58] LABS: Hematocrit 28.5 % (35.0-46.0); Hemoglobin 9.8 gm/dL (11.6-15.3)
--- NOTE | 2017-11-23 07:48 | P.PNOP ---
Subjective Interval history: pt states she had a very rough night, did not go home yesterday due to pain in left knee feeling better this morning would like to go home today Physical Exam Vital signs: Vital Signs 11/22/17 08:00 11/22/17 12:00 11/22/17 16:00 Temperature 98.0 F 98.5 F 98.1 F Pulse Rate 89 85 78 Respiratory Rate 12 12 18 Blood Pressure 104/51 L 95/48 L 117/55 L Pulse Oximetry 93 L 93 L 93 L 11/22/17 19:32 11/22/17 20:40 11/23/17 00:09 Temperature 98.0 F 98.3 F Pulse Rate 88 100 H Respiratory Rate 18 6 L 18 Blood Pressure 123/53 L 124/63 Pulse Oximetry 97 95 Intake & Output 11/22/17 11/23/17 11/23/17 18:59 06:59 18:59 Intake Total 720 / 720 240 / 240 Output Total 200 / 200 Balance 520 / 520 240 / 240 Weight 107.4 kg Intake: Oral 720 / 720 240 / 240 Output: Urine 200 / 200 Other: # Voids 2 Date of Last Bowel Movement 11/20/17 # Bowel Movements 0 Narrative: left knee dressing dry and intact ice in place swelling to left leg but no calf tenderness +NVI Results - Labs CBC & Chem 7: 11/23/17 05:07 Laboratory Results - last 24 hr 11/23/17 05:07 Hgb 9.8 L Hct 28.5 L Assessment and Plan - Assessment and Plan POD # 2 s/p L TKA Ortho stable Discharge home today, switching meds to percocet, sending to pharmacy [facility] RN/PT BETSEY,Aspirin 81mg BID x 4 weeks for DVT/PE prophylaxsis
[2017-11-23] MEDS: Senna/Docusate Sodium 8.6/50 MG Tablet PO SCH (09:35)
[2017-11-23 12:06] VITALS: RESP 18
[2017-11-23 12:35] VITALS: BP 111/58; PULSE 99; TEMP 97.7; O2SAT 96
[2017-11-24] MEDS ORDERED: Pantoprazole Sodium 20 MG DR Tablet PO SCH (09:00)
== END 2017-11-23 14:51 | disposition home health service (06) ==
LOC: HSDI 12:06 → N06 18:55
PROVIDERS: ADMIT Orthopaedic Surgery Orthopaedic Surgery of the Spine; ATTEND Orthopaedic Surgery Orthopaedic Surgery of the Spine